=== PATIENT | female | born 1960 | race Caucasian/White ===

== ENCOUNTER 2018-01-01 12:10 | Emergency (ER) | payer OTHER ==
[2018-01-01 12:34] VITALS: BP 140/79; PULSE 102; TEMP 98.7; BMI 26.5
[2018-01-01] MEDS ORDERED: KETOROLAC TROMETHAMINE 60 MG/2 ML VIAL IM ONE (13:30)
--- NOTE | 2018-01-01 13:36 | PDOC ---
History of Present Illness - General Chief Complaint: Pain, Acute Stated Complaint: SHOULDER AND ARM PAIN Time Seen by Provider: 01/01/18 13:16 History Source: Patient Exam Limitations: No Limitations - History of Present Illness Initial Comments: 01/01/18 13:31 CHIEF COMPLAINT: Left shoulder pain HISTORY OF PRESENT ILLNESS: Patient is a 57-year-old female who denies any significant medical history currently on no medication presents with left shoulder pain. Painful only with range of motion denies any chest pain or shortness of breath. 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 Occurred: reports: last week Severity: reports: moderate Extremity Pain Location - Extremity Pain Location Extremity Pain Locations: left: other (Shoulder) Past History - Past Medical History Allergies/Adverse Reactions: Allergies Allergy/AdvReac Type Severity Reaction Status Date / Time No Known Allergies Allergy Verified 01/01/18 12:29 Home Medications: Ambulatory Orders No Home Medications 0 dose .ROUTE UTDICT 03/24/13 Naproxen [Naprosyn -] 500 mg PO BID #20 tablet 01/01/18 COPD: No - Immunization History Immunization Up to Date: Yes - Suicide/Smoking/Psychosocial Hx Smoking Status: No Smoking History: Never smoked Number of Cigarettes Smoked Daily: 0 Hx Alcohol Use: No Drug/Substance Use Hx: No Review of Systems - Review of Systems Constitutional: No: Symptoms Reported HEENTM: No: Symptoms Reported Respiratory: No: Symptoms reported Cardiac (ROS): No: Symptoms Reported ABD/GI: No: Symptoms Reported : No: Symptoms Reported Musculoskeletal: Yes: Joint Pain, Joint Swelling. No: Muscle Pain, Muscle Weakness, Neck Pain, Joint Stiffness Integumentary: No: Symptoms Reported, Bruising, Erythema, Rash Neurological: No: Symptoms reported, Paresthesia, Tingling, Tremors Hematologic/Lymphatic: No: Symptoms Reported All Other Systems: Reviewed and Negative *Physical Exam - Vital Signs Last Vital Signs Temp Pulse Resp BP Pulse Ox 98.7 F 102 H 20 140/79 99 01/01/18 12:29 01/01/18 12:29 01/01/18 12:29 01/01/18 12:29 01/01/18 12:29 - Physical Exam General Appearance: Yes: Appropriately Dressed. No: Apparent Distress Neck: negative: Lymphadenopathy (R), Lymphadenopathy (L), Rigidity, Tender lateral, Tender midline Respiratory/Chest: positive: Lungs Clear, Normal Breath Sounds. negative: Respiratory Distress, Accessory Muscle Use Cardiovascular: positive: Regular Rhythm, Regular Rate Gastrointestinal/Abdominal: positive: Normal Bowel Sounds, Soft Musculoskeletal: positive: Decreased Range of Motion. negative: CVA Tenderness (R), CVA Tenderness (L), Muscle Spasm, Vertebral Tenderness Extremity: positive: Normal Capillary Refill, Normal Inspection. negative: Normal Range of Motion (unable to abduct arm), Pedal Edema, Swelling, Erythema, Inflammation Integumentary: positive: Normal Color, Dry. negative: Erythema, Swelling, Ecchymosis, Bruising Neurologic: positive: Alert, Normal Mood/Affect, Normal Response Medical Decision Making - Medical Decision Making 01/01/18 13:38 A/P: Patient with pain to left shoulder unable to abduct the arm. Pain is on palpation to the supraspinatus bursa, consistent with tendonitis. Sent for Xray. Toradol 60 mg IM x 1 ordered. Xray pending. 01/01/18 13:55 X-ray left shoulder is negative for acute fracture dislocation Toradol was given with good result. 01/01/18 15:01 DC to follow-up with orthopedics. *DC/Admit/Observation/Transfer Diagnosis at time of Disposition: Shoulder tendonitis Qualifiers: Laterality: left Qualified Code(s): M75.82 - Other shoulder lesions, left shoulder - Discharge Dispostion Disposition: HOME Condition at time of disposition: Stable Admit: No - Prescriptions Prescriptions: Naproxen [Naprosyn -] 500 mg PO BID #20 tablet - Referrals Referrals: James Morales MD [Staff Physician] - - Patient Instructions Printed Discharge Instructions: DI for Shoulder Tendinopathy Additional Instructions: Please follow-up with orthopedics as soon as possible. Sling only when ambulating, if you leave it on it may cause increased pain Naprosyn for pain - Post Discharge Activity Forms/Work/School Notes: Back to Work
[2018-01-01] MEDS ORDERED: KETOROLAC TROMETHAMINE 60 MG/2 ML VIAL ONE (14:04)
== END 2018-01-01 15:05 | disposition home or self-care (01) ==
LOC: JER 12:10
PROC: 3E0233Z Introduction of Anti-inflammatory into Muscle, Percutaneous Approach (ICD-10-PCS; principal; 2018-01-01)
DX: M75.82 Other shoulder lesions, left shoulder (principal)
CPT/HCPCS: 73030-TC-LT-FY; 99282-25

== ENCOUNTER 2019-07-16 14:30 | Emergency (ER) | payer OTHER ==
[2019-07-16 14:34] VITALS: BP 143/78; PULSE 80; TEMP 98; BMI 25.7
--- NOTE | 2019-07-16 15:03 | PDOC ---
History of Present Illness - General Chief Complaint: Pain Stated Complaint: RT. SIDE PAIN Time Seen by Provider: 07/16/19 14:48 History Source: Patient Exam Limitations: No Limitations - History of Present Illness Initial Comments: 07/16/19 15:03 HISTORY OF PRESENT ILLNESS: This 58-year-old woman denies medical history presents emergency department for evaluation of intermittent right hip pain radiating down her right leg for the past 4 days. Patient reports radiation is more of a pulling sensation she rates her pain 7/10 when it is present. Currently patient has no pain after taking a friend's Naprosyn 500 mg prior to arrival. Patient denies any recent trauma is ambulatory without difficulty. No recent travel or sick contacts. PAST MEDICAL HISTORY: Denies past medical history SURGICAL HISTORY: Denies ALLERGIES: No known drug allergies REVIEW OF SYSTEMS General/Constitutional: Denies fever or chills. Denies weakness, weight change. HEENT: Denies change in vision. Denies ear pain or discharge. Denies sore throat. Cardiovascular: Denies chest pain or shortness of breath. Respiratory: Denies cough, wheezing, or hemoptysis. Gastrointestinal: Denies nausea, vomiting, diarrhea or constipation. Denies rectal bleeding. Genitourinary: Denies dysuria, frequency, or change in urination. Musculoskeletal: see HPI Skin and breasts: Denies rash or easy bruising. Neurologic: Denies headache, vertigo, loss of consciousness, or loss of sensation. Psychiatric: Denies depression or anxiety. Endocrine: Denies increased thirst. Denies abnormal weight change. Hematologic/Lymphatic: Denies anemia, easy bleeding, or history of blood clots. Allergic/Immunologic: Denies hives or skin allergy. Denies latex allergy. PHYSICAL EXAM General Appearance: Well-appearing, appropriately dressed. No apparent distress , no intoxication. Respiratory/Chest: Lungs CTAB. No shortness of breath, chest tenderness, respiratory distress, accessory muscle use. No crackles, rales, rhonchi, stridor , wheezing, dullness Cardiovascular: RRR. S1, S2. No JVD, murmur, bradycardia, tachycardia. Musculoskeletal/Extremities: Normal inspection. FROM of all extremities, normal capillary refill. Pelvis Stable. No CVA tenderness. No tenderness to extremities, pedal edema, swelling, erythema or deformity. Integumentary: Appropriate color, dry, warm. 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 Fully oriented, alert. Appropriate mood/affect. Motor strength 5/5. No appreciable EOM palsy, facial droop or sensory deficit. Past History - Past Medical History Allergies/Adverse Reactions: Allergies Allergy/AdvReac Type Severity Reaction Status Date / Time No Known Allergies Allergy Verified 07/16/19 14:33 Home Medications: Ambulatory Orders No Home Medications 0 dose .ROUTE UTDICT 03/24/13 Naproxen [Naprosyn -] 500 mg PO BID #20 tablet 01/01/18 Naproxen 500 mg PO BID #20 tablet 07/16/19 COPD: No - Immunization History Immunization Up to Date: Yes - Suicide/Smoking/Psychosocial Hx Smoking Status: No Smoking History: Never smoked Number of Cigarettes Smoked Daily: 0 Hx Alcohol Use: No Drug/Substance Use Hx: No *Physical Exam - Vital Signs Last Vital Signs Temp Pulse Resp BP Pulse Ox 98.0 F 80 18 143/78 97 07/16/19 14:31 07/16/19 14:31 07/16/19 14:31 07/16/19 14:31 07/16/19 14:31 Medical Decision Making - Medical Decision Making 07/16/19 15:03 A/P: 58-year-old woman with resolved right-sided hip pain Prescription for Naprosyn Discharge home Dragon *DC/Admit/Observation/Transfer Diagnosis at time of Disposition: Hip pain Qualifiers: Laterality: right Qualified Code(s): M25.551 - Pain in right hip - Discharge Dispostion Disposition: HOME Condition at time of disposition: Stable Decision to Admit order: No - Prescriptions Prescriptions: Naproxen 500 mg PO BID #20 tablet - Referrals Referrals: Charles Ma MD [Primary Care Provider] - - Patient Instructions Additional Instructions: Rest. Take Tylenol as needed for pain. Follow manufacturers instructions for appropriate dosage. Take naproxen 500mg 2 times a day for pain. Warm heat applied to your hip may help alleviate pain. Return to emergency department for numbness or tingling to the rectum or genitals, worsening pain, or any other concerns. Thank you very much for choosing us to provide your emergent healthcare needs. - Post Discharge Activity
== END 2019-07-16 15:20 | disposition home or self-care (01) ==
LOC: JER 14:30
DX: M25.551 Pain in right hip (principal)
CPT/HCPCS: 99281-25

== ENCOUNTER 2022-07-17 22:35 | Observation (INO) | payer OTHER ==
[2022-07-17 22:50] VITALS: RESP 18; BMI 25.7
[2022-07-17] MEDS ORDERED: ACETAMINOPHEN 500 MG TABLET (FP) PO ONE (23:56)
[2022-07-18 00:24] LABS: BASO % 0.8 % (0-2.0); EOS % 2.2 % (0-4.5); HEMATOCRIT 37.3 % (32.4-45.2); HEMOGLOBIN 12.8 GM/dL (10.7-15.3); LYMPH % 26.7 % (8-40); MCH 30.8 pg (25.7-33.7); MCHC 34.3 g/dl (32.0-36.0); MEAN CELL VOLUME 89.8 fl (80-96); MEAN PLT VOLUME 7.3 fl (7.5-11.1); MONO % 6.9 % (3.8-10.2); NEUT % 63.4 % (42.8-82.8); PLATELET COUNT 310 10^3/uL (134-434); RBC 4.16 M/mm3 (3.60-5.2); RDW 13.6 % (11.6-15.6); WHITE BLOOD COUNT 9.6 K/mm3 (4.0-10.0)
[2022-07-18 00:32] LABS: INR 0.97 (0.83-1.09); PROTHROMBIN TIME (PATIENT) 11.1 SEC (9.7-13.0)
[2022-07-18 00:35] LABS: ACTIVATED PTT 34.6 SECONDS (25.2-36.5)
[2022-07-18] MEDS ORDERED: ACETAMINOPHEN 325 MG TABLET (FP) ONE (00:37)
[2022-07-18 00:47] LABS: ALBUMIN 3.9 g/dl (3.4-5.0); BLOOD UREA NITROGEN 13.8 mg/dL (7-18); CALCIUM 9.6 mg/dL (8.5-10.1)
[2022-07-18 00:50] LABS: CREATININE 0.5 mg/dL (0.55-1.3)
[2022-07-18 00:52] LABS: BILIRUBIN,TOTAL 0.3 mg/dL (0.2-1); TOT PROT 7.8 g/dl (6.4-8.2)
[2022-07-18 07:17] VITALS: BP 155/91; PULSE 67; TEMP 97.1
== END 2022-07-18 11:36 | disposition home or self-care (01) ==
LOC: JER 22:35 → JERBED 07-18 03:39
PROVIDERS: ADMIT Internal Medicine; ATTEND Internal Medicine
DX: R07.89 Other chest pain (principal); Z29.8 Encounter for other specified prophylactic measures
CPT/HCPCS: 0241U-QW; 36415; 71046-TC-FY; 80053; 84484; 85025; 85610; 85730; 93005; 93010; 99285-25; G0378